=== PATIENT | female | born 1975 ===

== ENCOUNTER 2024-11-10 14:43 | Emergency (ER) | payer MEDICARE, MEDICAID, SELFPAY ==
--- NOTE | ~2024-11-10 | CT_ITS ---
CLINICAL HISTORY: Left chest pain, pleuritic, SOB, tachy CT angiography chest with contrast. 3D Postprocessing. Comparison: CR/SR - XR CHEST 2V - 11/10/24 15:21 EDT Findings: The heart size is normal. RV/LV ratio is normal. Unremarkable thoracic aorta and great vessels. No aneurysm. No acute pulmonary embolus. Moderate-sized hiatal hernia is present. Dependent changes are present within the lungs bilaterally. There are patchy areas of ground-glass opacity or infiltrate and bilateral lower lobes. The upper abdomen demonstrates hepatic steatosis. The bones are intact. IMPRESSION: 1. No pulmonary emboli. 2. Dependent pulmonary changes with small foci of ground-glass attenuation and bilateral lower lobes, possibly infiltrate. 3. Moderate-sized hiatal hernia. This document has been electronically signed by: Mushtaq Jones MD, PHD on 11/10/2024 23:47:16
--- NOTE | ~2024-11-10 | XR_ITS ---
EXAMINATION: XR CHEST 2 VIEWS HISTORY: pain COMPARISON: There are no prior studies available for comparison. FINDINGS: PA and lateral views of the chest are submitted. The lungs are expanded and clear. There is no pleural effusion, pneumothorax, or pulmonary vascular congestion. The heart is normal in size. There is a small hiatal hernia. The bones are intact. XR/XR chest 2V IMPRESSION: Small hiatal hernia. The lungs are clear. Electronically signed by: Sánchez Nicolas MD 11/10/2024 03:33 PM EDT
--- NOTE | ~2024-11-10 | US_ITS ---
CLINICAL HISTORY: pain VENOUS DUPLEX ULTRASOUND BILATERAL LOWER EXTREMITY Comparison: None Findings: The visualized deep veins are fully compressible with normal Doppler color flow and spectral tracings. No popliteal cyst. In the mid posterior calf on the left, there is intra/intermuscular fluid stranding which is technically indeterminate. IMPRESSION: 1. Negative for bilateral lower extremity deep vein thrombosis. 2. Nonspecific fluid collection in the left calf. This document has been electronically signed by: Josselyn Castellanos DO on 11/10/2024 17:46:37
[2024-11-10 14:46] VITALS: BP 141/75; PULSE 135; RESP 22; TEMP 36.8; O2SAT 97; BMI 39.1
--- NOTE | 2024-11-10 14:51 | ECG_ITS ---
Test Reason : CP Blood Pressure : */* mmHG Vent. Rate : 121 BPM Atrial Rate : 121 BPM P-R Int : 140 ms QRS Dur : 64 ms QT Int : 330 ms P-R-T Axes : 43 -16 41 degrees QTcB Int : 468 ms Sinus tachycardia Inferior infarct , age undetermined Abnormal ECG No previous ECGs available Referred By: Norman Zazueta Electronically Signed By: KINZA EATON
--- NOTE | 2024-11-10 14:51 | ED.GENADULT ---
HPI - General Adult General Chief complaint: General Medical Stated complaint: Chest pain Time Seen by Provider: 11/10/24 20:49 History of Present Illness ED Provider: Jesus RIZZO narrative: The patient is a 49-year-old woman who says that several days ago she was walking in her house when she had an abrupt pain in the back of her left leg as if something had snapped. She went to see her primary care doctor who ordered an ultrasound of her legs that was to be done today At [facility] in [place]. Her son picked her up and was going to bring her to the office for the ultrasound when she seemed to feel much worse with a lot of pain in her chest and she also felt somewhat short of breath. This was mostly in the left side. They made the decision that instead of going to the ultrasound appointment they would come here instead. The patient also says that she has been having episodes of spasm like pain in the left side of her abdomen intermittently for several weeks. She also says that her voice has become unusually raspy over the last few months. The patient reports a history of frequent UTIs. She has had urinary discomfort for the last couple of weeks. She finished a course of antibiotics about a week ago. She thinks she might has been on nitrofurantoin. She did not get any relief of symptoms from the nitrofurantoin. Related Data Previous Rx's ?Medication ?Instructions ?Recorded cefuroxime axetil 250 mg tablet 250 mg PO BID #10 tabs 11/11/24 ibuprofen 400 mg tablet 400 mg PO Q6H PRN pain #14 tabs 11/11/24 phenazopyridine 200 mg tablet 200 mg PO TID PRN urinary 11/11/24 discomfort #6 tabs Allergies Allergy/AdvReac Type Severity Reaction Status Date / Time erythromycin base Allergy Unknown Unknown Verified 11/10/24 14:50 Penicillins Allergy Unknown Unknown Verified 11/10/24 14:50 Review of Systems Review of Systems: Yes all other systems are reviewed and are negative [facility] Social History Social History Advance Directives: No Advance Directives Information Provided: No Physical Exam ED Vital Signs: Vital Signs - 24 hr 11/10/24 14:46 11/10/24 19:12 11/10/24 19:12 Temperature 98.2 F 98.4 F 98.4 F Pulse Rate 135 H 116 H 116 H Respiratory Rate 22 H 18 18 Blood Pressure 141/75 H 115/71 115/71 Pulse Oximetry 97 98 98 Oxygen Delivery Method Room Air Room Air Room Air 11/10/24 20:10 11/10/24 22:28 11/10/24 22:45 Temperature 98.2 F 98.5 F Pulse Rate 129 H 113 H Respiratory Rate 20 18 22 H Blood Pressure 110/82 125/79 Pulse Oximetry 99 97 Oxygen Delivery Method Room Air 11/11/24 01:08 Temperature 98.3 F Pulse Rate 101 H Respiratory Rate 16 Blood Pressure 143/84 H Pulse Oximetry 98 Oxygen Delivery Method Room Air BMI result Body Mass Index 39.1 Const Other: The patient is 49-year-old woman who was awake and alert. She did not appear in obvious distress or seem acutely toxic. HENMT Other: Face is symmetrical, mucous membranes moist Eyes General: appearance normal, both eyes and all related structures Neck Neck: Yes normal visual inspection and Yes full ROM Resp Effort & Inspection: normal respiratory effort Auscultation: clear to auscultation bilaterally Cardio Rate: tachycardic Rhythm: regular rhythm Heart sounds: S1 normal heart sound present and S2 normal heart sound present GI Other: The abdomen was soft and nontender Skin Other: Skin is dry and unremarkable Neuro Other: The patient is awake and alert with a normal mental status. Cranial nerves are grossly intact. She has grossly intact strength and sensation in her extremities although she has pain in the left calf that limits function of the left lower leg. Extrem Other: The patient has significant tenderness to the left posterior calf. The Achilles tendon feels intact. If he had seem well-perfused. Course Course Course Narrative: RME, this is a rapid medical exam performed by Adolph Zazueta please refer to primary provider for complete H&P- 49-year-old female presents for evaluation of chest pain, abdominal pain, calf swelling. She was on her way for an outpatient ultrasound and presenting to the ED. She also complains of raspy voice. Plan for cardiac workup an ultrasound of the lower extremities to rule out DVT. Medications Administered Discontinued Medications Generic Name Dose Route Start Last Admin Trade Name Freq PRN Reason Stop Dose Admin Cefuroxime Axetil 250 mg 11/11/24 00:28 11/11/24 00:49 Cefuroxime Axetil 250 Mg Tablet PO 11/11/24 00:29 250 mg ONCE ONE Administration Iohexol 85 ml 11/10/24 23:20 11/10/24 23:21 Iohexol 350 Mg/Ml 100 Ml Infus..Btl IV 11/10/24 23:21 85 ml ONCE ONE Administration Ketorolac Tromethamine 10 mg 11/11/24 00:13 11/11/24 00:49 Ketorolac Tromethamine 15 Mg/Ml Vial IVPUSH 11/11/24 00:14 10 mg ONCE ONE Administration Morphine Sulfate 4 mg 11/10/24 22:17 11/10/24 22:28 Morphine Sulfate 4 Mg/Ml Cartridge IVPUSH 11/10/24 22:18 4 mg ONCE ONE Administration Protocol Ondansetron HCl 4 mg 11/10/24 22:17 11/10/24 22:28 Ondansetron Hcl 4 Mg/2 Ml Vial IVPUSH 11/10/24 22:18 4 mg ONCE ONE Administration Phenazopyridine HCl 200 mg 11/11/24 00:28 11/11/24 00:48 Phenazopyridine Hcl 200 Mg Tablet PO 11/11/24 00:29 200 mg ONCE ONE Administration Medical Decision Making Medical Decision Making [facility] Narrative: The patient is a 49-year-old woman with a history of fibromyalgia and other conditions who sustained an acute injury to her left calf few days ago. She was seen at her PCP's office and an outpatient ultrasound was supposed to be done today but she developed acute left-sided chest pain and shortness of breath and so she was brought here instead. She was tachycardic on arrival but not hypoxic. At triage labs and an ultrasound of the left leg were ordered. The ultrasound was negative for bilateral lower extremity DVTs. The ultrasound showed a nonspecific fluid collection in the left mid posterior calf. My impression is that the patient probably had some kind of a calf muscle tear a few days ago while walking in her apartment. Given her complaint of left-sided pleuritic chest pain and shortness of breath I felt obligated to also rule out a pulmonary embolism despite the negative bilateral lower extremity DVT study. A CT pulmonary angiogram shows no pulmonary emboli. The reading of the CT included ?dependent pulmonary changes with small foci of ground-glass attenuation in bilateral lower lobes, possibly infiltrate. ?. I reviewed the CT images. I did not see anything that I felt looked like a pneumonia and I do not think the patient's history is highly suggestive of an acute pneumonia. The patient's urinalysis was somewhat abnormal. The patient is describing having some UTI symptoms and would like to take another course of antibiotics. Ultimately I felt the patient was appropriate for discharge. Her tachycardia improved although did not entirely resolve. Nevertheless she looked clinically well enough for discharge I thought. She was given a tall orthopedic boot on her left leg as well as crutches and advised to do nonweightbearing as tolerated. She was started on a course of cefuroxime for a possible UTI. She should use ibuprofen and acetaminophen as needed for pain. She should follow up with her PCP. Lab Data 11/10/24 15:12 11/10/24 15:12 Labs: Lab Results 11/10/24 11/10/24 Range/Units 15:12 19:59 WBC 13.7 H (4.8-10.8) X10*3/uL RBC 4.25 (4.20-5.50) X10*6/uL Hgb 10.6 L (12.0-16.0) g/dl Hct 34.1 L (37.0-47.0) % MCV 80.2 (80.0-98.0) fL MCH 24.9 L (27.0-33.0) pg MCHC 31.1 (31.0-35.0) g/dl RDW 17.5 H (11.0-16.0) % Plt Count 593 H (160-400) X10*3/uL MPV 8.7 L (9.4-12.3) fL Immature Gran % (Auto) 2.0 H (0.0-0.4) % Neut % (Auto) 62.6 (45-73) % Lymph % (Auto) 24.6 (20-40) % Mobile % (Auto) 7.7 (2-11) % Eos % (Auto) 2.4 (0-4) % Baso % (Auto) 0.7 (0-2) % Lymph # (Auto) 3.4 (1.2-4.9) X10*3/uL Mobile # (Auto) 1.1 (0.1-1.2) X10*3/uL Eos # (Auto) 0.3 (0.0-0.4) X10*3/uL Baso # (Auto) 0.1 (0.0-0.2) X10*3/uL Abs Immat Gran (auto) 0.27 H (0.00-0.03) X10*3/uL Absolute Neuts (auto) 8.6 H (2.0-8.3) x10*3/uL Absolute Nucleated RBC 0.090 H (0.0-0.012) X10*3/uL Nucleated RBC % (auto) 0.7 H (0.0-0.2) /100WBC Sodium 140 (135-145) mmol/L Potassium 4.1 (3.3-5.1) mmol/L Chloride 108 (96-108) mmol/L Carbon Dioxide 22 (22-29) mmol/L Anion Gap 14 (12-20) BUN 13 (9-16) mg/dL Creatinine 0.84 (0.5-1.4) mg/dL Estim Creat Clear Calc 86.5 Estimated GFR > 60 Random Glucose 82 (60-115) mg/dL Calcium 9.6 (8.4-10.2) mg/dL Total Bilirubin 0.2 (0.0-1.0) mg/dL AST 25 (5-31) U/L ALT 26 (0-31) U/L Alkaline Phosphatase 102 (39-117) U/L Total Creatine Kinase 146 H (26-140) U/L Troponin I High Sens 3.6 (<3.5-17.0) ng/L C-Reactive Protein 2.09 H (< or = 0.50) mg/dL Total Protein 7.4 (6.5-8.0) g/dL Albumin 4.4 (3.5-5.0) g/dL Lipase 25 (8-78) U/L Beta HCG, Quant < 2 mIU/mL Urine Color Yellow Urine Appearance Cloudy Urine pH 5.5 (5.0-9.0) Ur Specific [place] 1.020 (1.005-1.025) Urine Protein Trace (Neg-Trace) mg/dL Urine Glucose (UA) Negative (Negative) mg/dL Urine Ketones Trace (Negative) mg/dL Urine Blood Negative (Negative) Urine Nitrite Positive H (Negative) Ur Leukocyte Esterase Large (3+) H (Negative) Urine RBC 3-5 H (0-2) /HPF Urine WBC 11-20 (0-5) /HPF Ur Squamous Epith Cells 3-5 (0-2) /HPF Urine Bacteria 4+ (None Seen) Hyaline Casts 0-2 (0-2) /LPF Influenza Type A (PCR) NEGATIVE (Negative) Influenza Type B (PCR) NEGATIVE (Negative) RSV RNA Qual (PCR) NEGATIVE (Negative) SARS-CoV-2 RNA (RT-PCR) NEGATIVE (Negative) Discharge Plan Discharge Clinical Impression: Strain of left calf muscle, Left-sided chest pain, Urinary tract infection Patient Disposition: Home, Self-Care Instructions: Urinary Tract Infection in Women (ED) Additional Instructions: I believe that you have a muscle tear in the muscles of your left calf. In order to manage this you have been given an orthopedic boot and crutches. Please try to rest the leg and keep it elevated and to put as little weight on the leg as possible. You may use ibuprofen and acetaminophen as needed for pain. Your urine testing suggests that you may have a UTI. You has been started on the antibiotic cefuroxime. Please take this antibiotic 2 times a day for the next 5 days. A prescription has also been sent for phenazopyridine (a.k.a. Pyridium or Azo). You may use this As needed for urinary discomfort. Please plan on following up with your regular doctor regarding your leg injury and your other symptoms as well. Return to the emergency room if significantly worse. Prescriptions: New cefuroxime axetil 250 mg tablet 250 mg PO BID Qty: 10 0RF ibuprofen 400 mg tablet 400 mg PO Q6H PRN (Reason: pain) Qty: 14 0RF phenazopyridine 200 mg tablet 200 mg PO TID PRN (Reason: urinary discomfort) Qty: 6 0RF Referrals: Beata Pratt NP [Nurse Practitioner] - Interventions: ED Discharge Assessment Last Done: 11/11/24 01:08 Discharge Date/Time: 11/11/24 01:07 Print Language: Kiswahili
[2024-11-10 15:18] LABS: MANUAL DIFF FLAG NO
[2024-11-10 15:21] LABS: Basophils Absolute Auto 0.1 X10*3/uL (0.0-0.2); Basophils Percent Auto 0.7 % (0-2); Eosinophils Absolute Auto 0.3 X10*3/uL (0.0-0.4); Eosinophils Percent Auto 2.4 % (0-4); Hematocrit 34.1 % (37.0-47.0); Hemoglobin 10.6 g/dl (12.0-16.0); Imm Gran Abs Auto 0.27 X10*3/uL (0.00-0.03); Lymphocytes Absolute Auto 3.4 X10*3/uL (1.2-4.9); Lymphocytes Percent Auto 24.6 % (20-40); Mean Corpuscular HGB Conc 31.1 g/dl (31.0-35.0); Mean Corpuscular Hemoglobin 24.9 pg (27.0-33.0); Mean Corpuscular Volume 80.2 fL (80.0-98.0); Mean Platelet Volume 8.7 fL (9.4-12.3); Monocytes Absolute Auto 1.1 X10*3/uL (0.1-1.2); Monocytes Percent Auto 7.7 % (2-11); NRBC Pct Auto 0.7 /100WBC (0.0-0.2); Neutrophils Absolute Auto 8.6 x10*3/uL (2.0-8.3); Neutrophils Percent Auto 62.6 % (45-73); Platelet Count 593 X10*3/uL (160-400); Red Blood Count 4.25 X10*6/uL (4.20-5.50); Red Cell Distribution Width 17.5 % (11.0-16.0); White Blood Count 13.7 X10*3/uL (4.8-10.8)
[2024-11-10 15:36] LABS: Anion Gap 14 (12-20)
[2024-11-10 15:38] LABS: Alanine Aminotransferase 26 U/L (0-31); Albumin Level 4.4 g/dL (3.5-5.0); Aspartate Amino Transferase 25 U/L (5-31); Bilirubin Total 0.2 mg/dL (0.0-1.0); Blood Urea Nitrogen 13 mg/dL (9-16); Calcium 9.6 mg/dL (8.4-10.2); Carbon Dioxide 22 mmol/L (22-29); Chloride 108 mmol/L (96-108); Creatinine Clr Calc Pharmacy 86.5; Estimated Glomerular Filt Rate > 60; Glucose Random 82 mg/dL (60-115); Lipase 25 U/L (8-78); Potassium 4.1 mmol/L (3.3-5.1); Sodium 140 mmol/L (135-145); Total Protein 7.4 g/dL (6.5-8.0)
[2024-11-10 15:41] LABS: HCG Quantitative < 2 mIU/mL
[2024-11-10 15:42] LABS: Troponin-I High Sensitivity 3.6 ng/L (<3.5-17.0)
[2024-11-10 15:56] LABS: Alkaline Phosphatase 102 U/L (39-117)
[2024-11-10 15:57] LABS: Influenza A PCR NEGATIVE (Negative); Influenza B PCR NEGATIVE (Negative); Resp Syncy Virus RNA Qual PCR NEGATIVE (Negative); SARS COV2 PCR INHOUSE NEGATIVE (Negative)
--- NOTE | 2024-11-10 16:38 | PC.NURSE ---
Away for ultrasound from waiting room. Continues to await an available ED bed.
[2024-11-10 19:12] VITALS: BP 115/71; PULSE 116; RESP 18; TEMP 36.9; O2SAT 98
[2024-11-10 20:07] LABS: Appearance Urine Cloudy; Color Urine Yellow; Glucose Urine UA Negative (Negative); Leukocyte Esterase Urine Large (3+) (Negative); Nitrite Urine Positive (Negative); PH 5.5 (5.0-9.0); UMIC TRIGGER UACC YES; Urine Blood Negative (Negative); Urine Ketones Trace mg/dL (Negative); Urine Protein Trace mg/dL (Neg-Trace)
[2024-11-10 20:10] VITALS: BP 110/82; PULSE 129; RESP 20; TEMP 36.8; O2SAT 99
[2024-11-10 20:21] LABS: Bacteria Urine 4+ (None Seen); Hyaline Casts Urine 0-2 /LPF (0-2); UACC Culture Trigger YES
--- NOTE | 2024-11-10 21:24 | PC.NURSE ---
at bedside attempting to speak with pt. pt refusing to speak to provider, states i am not speaking until i am in a room . informed charge. no rooms available
--- OUTSIDE RECORDS SUMMARY | 2024-11-10 21:36 | XMS_ITS | Encounter Summary ---
Author Organization [id number] Address [address] [place] [address] Care Team Providers Care Quality Intern Name Role Phone Unavailable Primary Care Provider Unavailabl e Encounter Details Date Type Department Care Team (Latest Contact Info) Description 11/21/2020 Abstract [facility] CONVERSIONS Dental, Provider, DDS Social History Tobacco Use Types Packs/Day Years Used Date Smoking Tobacco: Never Assessed Comments Unknown Sex and Gender Information Value Date Recorded Sex Assigned at Female 09/23/2024 2:27 PM EDT Legal Sex Female 5:36 PM EDT Gender Identity Female 09/23/2024 2:27 PM EDT Sexual Orientation Straight 09/23/2024 2: 27 PM EDT documented as of this encounter Plan of Treatment Not on file documented as of this encounter Visit Diagnoses Not on filedocumented in this encounter
--- NOTE | 2024-11-10 21:39 | PC.NURSE ---
pt upset about being pulled into hallway, states she would get a room when a person leaves. 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
--- NOTE | 2024-11-10 21:59 | PC.NURSE ---
pt moved into room [address] provider aware and speaking with pt
[2024-11-10 22:28] VITALS: RESP 18
[2024-11-10] MEDS: ondansetron HCL 4 MG/2 ML VIAL IVPUSH (22:28)
[2024-11-10] MEDS: Morphine Sulfate 4 MG/ML CARTRIDGE IVPUSH (22:28)
--- NOTE | 2024-11-10 22:31 | PC.NURSE ---
20 g in L forearm, pt tolerated well, pt medicated per AUG, waiting on CT
[2024-11-10 22:34] LABS: C Reactive Protein 2.09 mg/dL (< or = 0.50)
[2024-11-10 22:45] VITALS: BP 125/79; PULSE 113; RESP 22; TEMP 36.9; O2SAT 97
[2024-11-10] MEDS: iohexoL 350 MG/ML 100 ML INFUS..BTL 85 ML IV (23:21)
[2024-11-11] MEDS: Phenazopyridine HCL 200 MG TABLET PO (00:48)
[2024-11-11] MEDS: Ketorolac Tromethamine 15 MG/ML VIAL 10 MG IVPUSH (00:49)
[2024-11-11] MEDS: cefuroxime axetiL 250 MG TABLET PO (00:49)
[2024-11-11 01:08] VITALS: BP 143/84; PULSE 101; RESP 16; TEMP 36.8; O2SAT 98
== END 2024-11-11 01:07 | disposition home or self-care (01) ==
PROVIDERS: Physician Assistant; Emergency Provider Emergency Medicine
DX: R07.89 Other chest pain (principal); N39.0 Urinary tract infection, site not specified; S86.912A Strain of unspecified muscle(s) and tendon(s) at lower leg level, left leg, initial encounter; X58.XXXA Exposure to other specified factors, initial encounter; Y93.9 Activity, unspecified; Y92.9 Unspecified place or not applicable; Y99.9 Unspecified external cause status; R06.02 Shortness of breath; M79.662 Pain in left lower leg; R00.0 Tachycardia, unspecified; Z03.818 Encounter for observation for suspected exposure to other biological agents ruled out
CPT/HCPCS: 0241U; 36415; 71046; 71275; 80053; 81001; 82550; 83690; 84484; 84702; 85025; 86140; 87086; 87088; 87186; 93005; 93970; 96374; 96375; 99284; 99285; J1885; J2270; J2405; Q9967

== ENCOUNTER → 2024-11-10 14:51 | Outpatient (BNV) | payer MEDICARE, MEDICAID, SELFPAY | PROVIDERS: Emergency Provider Emergency Medicine; Visit Provider Internal Medicine | DX: R00.0 Tachycardia, unspecified (principal) | CPT/HCPCS: 93010 ==

== ENCOUNTER → 2024-11-10 14:52 | Outpatient (BNV) | payer MEDICARE, MEDICAID, SELFPAY | PROVIDERS: Visit Provider Radiology Diagnostic Radiology | DX: M79.661 Pain in right lower leg (principal); M79.662 Pain in left lower leg; K44.9 Diaphragmatic hernia without obstruction or gangrene | CPT/HCPCS: 71046 ==